=== PATIENT | female | born 1995 | race Caucasian/White ===

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

== ENCOUNTER 2017-01-08 11:12 | Emergency (ER) | payer OTHER ==
[2017-01-08 11:22] VITALS: RESP 16
--- NOTE | 2017-01-08 13:57 | EDPHY ---
H & P Stated Complaint: sore throat, malase, body aches, back pain for 4 days HPI/ROS: Chief complaint: Cold symptoms History of present illness: This is a 21-year-old female presents to the emergency department for cold symptoms. Patient reports the onset of symptoms over the last 1-2 days. Reports tactile fevers, headache, body aches, sore throat. Symptoms have been persistent. She denies precipitating factors. She denies alleviating factors no other signs or symptoms including no chest congestion, no cough and no rash. - Personal History LMP (Females 10-55): Unknown Current Tetanus/Diphtheria Vaccine: Yes Current Tetanus Diphtheria and Acellular Pertussis (TDAP): Yes Tetanus Vaccine Date: 2015 - Medical/Surgical History Hx Asthma: Yes Hx Chronic Respiratory Disease: No Hx Diabetes: No Hx Cardiac Disease: No Hx Renal Disease: No Hx Cirrhosis: No Hx Alcoholism: No Hx HIV/AIDS: No Hx Splenectomy or Spleen Trauma: No Other PMH: ankle surgeries,asthma - Social History Smoking Status: Never smoked - Physical Exam Exam: General Appearance: Alert, nontoxic. Eyes: Pupils equal and round no injection. ENT: Tympanic membranes, external auditory canals, external easr and surrounding soft tissue including over the mastoids are unremarkable. Nasopharynx is not injected. There is no rhinorrhea. Oropharynx is injected. There is no edema. There is no exudate. There is no asymmetry. The uvula is midline. No elevation of the tongue. There is no hoarseness, no drooling, no trismus, no stridor. Respiratory: Chest is nontender, lungs are clear to auscultation. Cardiac: regular rate and rhythm. Gastrointestinal: Abdomen is soft and nontender, no masses, bowel sounds normal. Musculoskeletal: Neck is supple and nontender. Extremities have full range of motion and are nontender. Skin: No rashes or lesions. Neurological: Alert and oriented x4. Strength and sensation intact and symmetrical. No meningismus. Constitutional: Initial Vital Signs Temperature (C) 36.4 C 01/08/17 11:20 Heart Rate 83 01/08/17 11:20 Respiratory Rate 16 01/08/17 11:20 Blood Pressure 111/70 01/08/17 11:20 O2 Sat (%) 97 01/08/17 11:20 O2 Delivery Mode Room Air Allergies/Adverse Reactions: No Known Allergies Allergy (Verified 03/04/16 20:13) Home Medications: Medication Instructions Recorded Albuterol Sulfate [Albuterol 1 - 2 puffs IH Q4H 03/04/15 Inhaler Hfa] Nuvaoring 03/04/16 Advair 100/50 (*) 09/09/16 Diazepam [Valium 5 MG (*)] 5 mg PO TID PRN #7 tab 09/09/16 Ibuprofen [Motrin (*)] 800 mg PO Q6-8PRN #10 tab 09/09/16 Medical Decision Making ED Course/Re-evaluation: Patient is seen under the supervision of my secondary supervising physician Dr. Isadora Huang. Patient presents to the emergency department for cold symptoms. On presentation she is nontoxic. Afebrile and vital signs are stable. Evaluation is unremarkable. Likely a viral syndrome. My suspicion for complications such as abscess formation or meningitis is low. I do not believe imaging studies or a lumbar puncture are warranted at this time. Patient is discharged home. She does report she has an appointment with her primary care doctor tomorrow. I have asked her to keep this for recheck. Home care is discussed. Return precautions are given. Patient voiced understanding and agreement with plan. Differential Diagnosis: Included but not limited to pharyngitis, tonsillitis, influenza unlikely meningitis or abscess formation - Data Points Laboratory Results: 01/08/17 01/08/17 01/08/17 Unknown 12:40 12:35 Monoscreen NEGATIVE (NEGATIVE) Influenza A,B Rapid NEGATIVE FOR FLU (NEGATIVE) Group A Strep Screen Group A Strep DNA Pending 01/08/17 12:25 Monoscreen Influenza A,B Rapid Group A Strep Screen NEGATIVE (NEGATIVE) Group A Strep DNA Departure - Departure Disposition: Home, Routine, Self-Care Clinical Impression: Viral syndrome Condition: Good Instructions: Viral Syndrome (ED) Additional Instructions: Follow-up with your primary care doctor tomorrow as already arranged If symptoms worsen or new symptoms develop return to the emergency room for recheck Referrals: Chirag Garber MD [Primary Care Provider] - As per Instructions
[2017-01-08 14:15] VITALS: BP 116/61; PULSE 68; TEMP 98.1; O2SAT 98
== END 2017-01-08 14:15 | disposition home or self-care (01) ==
DX: B34.9 Viral infection, unspecified (principal); J45.909 Unspecified asthma, uncomplicated

== ENCOUNTER → 2017-11-26 | Outpatient (CLI) | payer OTHER ==
[~2017-11-26] MED LIST: IOPAMIDOL (ISOVUE-300) 100 ML BTL ONE
== END ==
LOC: CIMAGING 13:11
PROVIDERS: ATTEND Nurse Practitioner Family
DX: R11.2 Nausea with vomiting, unspecified (principal); K59.00 Constipation, unspecified
CPT/HCPCS: 74177-PO; Q9967